=== PATIENT | female | born 1985 | race Caucasian/White ===

== ENCOUNTER 2020-07-10 05:40 | Day surgery (SDC) | payer OTHER, BC ==
[~2020-07-10] VITALS: Ht 160 cm; Wt 62.0 kg
[~2020-07-10 05:40] MED LIST: FLUO10CA13 PO
[2020-07-10 06:12] VITALS: BP 109/78
[2020-07-10] MEDS ORDERED: CHLORHEXIDINE 15 ML UDC MM ONE (06:30)
[2020-07-10] MEDS ORDERED: LACTATED RINGERS 1,000 ML IV SCH (06:30)
[2020-07-10] MEDS ORDERED: CIPROFLOXACIN/HYDROCORTISONE EAR SUSP 0.2-1%, 10ML ONE (06:53)
[2020-07-10] MEDS ORDERED: DEXAMETHASONE 4 MG/ML, 1ML ONE ×2 (07:07→07:49)
[2020-07-10] MEDS ORDERED: LIDOCAINE-MPF 2% ,5ML ONE ×2 (07:07→07:49)
[2020-07-10] MEDS ORDERED: PROPOFOL 10 MG/ML, 20ML ONE ×2 (07:07→07:49)
[2020-07-10] MEDS ORDERED: GLYCOPYRROLATE 0.2MG/1ML, 5ML ONE ×2 (07:07→07:49)
[2020-07-10] MEDS ORDERED: MIDAZOLAM 1 MG/ML, 2ML ONE ×2 (07:08→07:49)
[2020-07-10] MEDS ORDERED: FENTANYL PF 100 MCG/2ML ONE (07:08)
[2020-07-10] MEDS ORDERED: LORazepam 2 MG/ML, 1ML IVPush PRN (07:30)
[2020-07-10] MEDS ORDERED: OXYcodone 5 MG/5 ML ORAL.SOL UDC PO PRN (07:30)
[2020-07-10] MEDS ORDERED: MEPERIDINE/PF 25MG/0.5ML IVPush PRN (07:30)
[2020-07-10] MEDS ORDERED: hydrALAzine 20 MG/ML, 1ML IV PRN (07:30)
[2020-07-10] MEDS ORDERED: HALOPERIDOL 5 MG/ML IV PRN (07:30)
[2020-07-10] MEDS ORDERED: FENTANYL PF 100 MCG/2ML IV PRN (07:30)
[2020-07-10] MEDS ORDERED: KETOROLAC 30 MG/1 ML IVPush PRN (07:30)
[2020-07-10] MEDS ORDERED: DIAZEPAM 5 MG/ML, 2ML IVPush PRN (07:30)
[2020-07-10] MEDS ORDERED: DIPHENHYDRAMINE 50 MG/ML, 1ML IVPush PRN (07:30)
[2020-07-10] MEDS ORDERED: MIDAZOLAM 1 MG/ML, 2ML IV PRN (07:30)
[2020-07-10] MEDS ORDERED: METHOCARBAMOL 1,000 MG in DEXTROSE 5% 100 ML IV PRN (07:30)
[2020-07-10] MEDS ORDERED: ONDANSETRON 2MG/ML, 2ML IVPush PRN (07:30)
[2020-07-10] MEDS ORDERED: HYDROmorphone 1 MG/ML, 1ML INJ IVPush PRN (07:30)
[2020-07-10] MEDS ORDERED: EPHEDRINE 50 MG/ML, 1ML IVPush PRN (07:30)
[2020-07-10] MEDS ORDERED: ALBUTEROL/IPRATROPIUM 2.5MG/0.5MG, 3 ML NPPB PRN (07:30)
[2020-07-10] MEDS ORDERED: LABETALOL 5MG/ML, 20ML IV PRN (07:30)
[2020-07-10] MEDS ORDERED: HYDROcodone/APAP 7.5-325MG/15ML UDC PO PRN (07:30)
[2020-07-10] MEDS ORDERED: FENTANYL PF 250 MCG/5ML ONE (07:49)
[2020-07-10] MEDS ORDERED: ROCURONIUM 10MG/ML,5ML ONE (07:49)
== END 2020-07-10 08:45 | disposition home or self-care (01) ==
LOC: OUT 05:40
PROVIDERS: ATTEND Otolaryngology
DX: H69.83 Other specified disorders of Eustachian tube, bilateral (principal); J45.909 Unspecified asthma, uncomplicated; F32.9 Major depressive disorder, single episode, unspecified; Z20.828 Contact with and (suspected) exposure to other viral communicable diseases; Z79.899 Other long term (current) drug therapy
CPT/HCPCS: 69436; 81025; J1100; J2250; J2704; J3010; J7120; L8613; U0003